=== PATIENT | female | born 1970 | race Two or more races ===

== ENCOUNTER 2024-09-06 09:20 | Outpatient (CLI) | payer OTHER | END 2024-09-06 09:36 | disposition home or self-care (01) | LOC: SONOGRAMA 09:20 | PROVIDERS: ATTEND Pathology Anatomic Pathology & Clinical Pathology | DX: D34 Benign neoplasm of thyroid gland (principal); E07.89 Other specified disorders of thyroid; E04.1 Nontoxic single thyroid nodule ==